=== PATIENT | female | born 1960 | race African-American/Black ===

== ENCOUNTER 2018-02-08 15:39 | Inpatient (IN) | payer MEDICARE, OTHER ==
[2018-02-08] MEDS ORDERED: ACETAMINOPHEN 325 MG TABLET. PO (16:30)
[2018-02-08] MEDS ORDERED: DEXTROSE 50% 25 GM / 50ML DISP.SYRIN. IV (16:30)
[2018-02-08] MEDS ORDERED: CETIRIZINE HCL 10 MG TABLET. PO (16:30)
[2018-02-08] MEDS ORDERED: DICLOFENAC SODIUM 1% TOPICAL GEL 100GM TUBE. TP (16:30)
[2018-02-08] MEDS ORDERED: FAMOTIDINE 20 MG TABLET. PO (16:30)
[2018-02-08 16:59] LABS: POC GLUCOSE 200 mg/dL (70-99)
[2018-02-08] MEDS ORDERED: ALBUTEROL SULFATE 2.5 MG/3 ML NEBU. NEB (17:00)
[2018-02-08] MEDS: ALBUTEROL SULFATE 2.5 MG/3 ML NEBU. NEB ×2 (17:12→19:48)
[2018-02-08] MEDS: methylPREDNISolone SOD SUCC PF 125 MG/2 ML VIAL. IV ×2 (17:15→23:56)
[2018-02-08] MEDS: IV NORMAL SALINE 1000ML BAG 1,000 ML IV (17:15)
[2018-02-08] MEDS: INSULIN ASPART 300 UNITS/3 ML INSULN.PEN SQ ×2 (17:16)
[2018-02-08] MEDS: BUDESONIDE 0.5 MG/2 ML NEBU. NEB (19:47)
[2018-02-08] MEDS: LACTOBACILLUS RHAMNOSUS GG 1 CAPSULE. PO (21:02)
[2018-02-08] MEDS: GABAPENTIN 300 MG CAPSULE. PO (21:02)
[2018-02-08] MEDS: AMOXICILLIN/K CLAV 875/125MG TABLET. PO (21:02)
[2018-02-08] MEDS: MONTELUKAST SODIUM 10 MG TABLET. PO (21:02)
[2018-02-08 21:09] LABS: POC GLUCOSE 367 mg/dL (70-99)
[2018-02-08] MEDS: DOCUSATE SODIUM 100 MG CAPSULE. PO (21:09)
[2018-02-08] MEDS: INSULIN DETEMIR 300 UNITS/3 ML INSULN.PEN. SQ (21:16)
[2018-02-09] MEDS: IV NORMAL SALINE 1000ML BAG 1,000 ML IV ×2 (03:37→14:18)
[2018-02-09] MEDS: methylPREDNISolone SOD SUCC PF 125 MG/2 ML VIAL. IV ×4 (06:05→23:39)
[2018-02-09 07:21] LABS: ALBUMIN 2.8 g/dL (3.4-5.0); ALBUMIN/GLOBULIN RATIO 0.8 (1.0-1.7); ALK PHOS 111 U/L (46-116); ALT (SGPT) 26 U/L (14-59); ANION GAP 9 (6-14); AST (SGOT) 15 U/L (15-37); BLOOD UREA NITROGEN 34 mg/dL (7-20); BUN/CREATININE RATIO 31 (6-20); CALCIUM 8.9 mg/dL (8.5-10.1); CARBON DIOXIDE 23 mmol/L (21-32); CHLORIDE 105 mmol/L (98-107); CREATININE 1.1 mg/dL (0.6-1.0); GFR 62.2; GLUCOSE 346 mg/dL (70-99); POTASSIUM 4.5 mmol/L (3.5-5.1); SODIUM 137 mmol/L (136-145); TOTAL BILIRUBIN 0.2 mg/dL (0.2-1.0); TOTAL PROTEIN 6.5 g/dL (6.4-8.2)
[2018-02-09 07:52] LABS: POC GLUCOSE 299 mg/dL (70-99)
[2018-02-09] MEDS: GABAPENTIN 300 MG CAPSULE. PO ×2 (08:20→20:43)
[2018-02-09] MEDS: amLODIPine BESYLATE 5 MG TABLET PO (08:20)
[2018-02-09] MEDS: AMOXICILLIN/K CLAV 875/125MG TABLET. PO ×2 (08:20→20:44)
[2018-02-09] MEDS: LACTOBACILLUS RHAMNOSUS GG 1 CAPSULE. PO ×2 (08:20→20:43)
[2018-02-09] MEDS: ALLOPURINOL 300 MG TABLET. PO (08:20)
[2018-02-09] MEDS: ASPIRIN CHEWABLE 81 MG TABLET. PO (08:20)
[2018-02-09] MEDS: DOCUSATE SODIUM 100 MG CAPSULE. PO (08:21)
[2018-02-09] MEDS: INSULIN ASPART 300 UNITS/3 ML INSULN.PEN SQ ×6 (08:24→17:23)
[2018-02-09] MEDS: INSULIN DETEMIR 300 UNITS/3 ML INSULN.PEN. SQ ×2 (08:25→20:47)
[2018-02-09 09:12] LABS: ADD MAN DIFF? NO
[2018-02-09 09:18] LABS: BASO % 0 % (0-3); EOS % 0 % (0-3); HEMATOCRIT 37.8 % (36.0-47.0); LYMPH # 1.8 x10^3/uL (1.0-4.8); LYMPH % 15 % (24-48); MEAN CORPUSCULAR HEMOGLOBIN 30 pg (25-35); MEAN CORPUSCULAR HGB CONC 32 g/dL (31-37); MEAN CORPUSCULAR VOLUME 93 fL (79-100); MONO # 0.4 x10^3/uL (0.0-1.1); MONO % 4 % (0-9); NEUT # 10.1 x10^3uL (1.8-7.7); NEUT % 82 % (31-73); PLATELET COUNT 248 x10^3/uL (140-400); RED BLOOD COUNT 4.05 x10^6/uL (3.50-5.40); RED CELL DISTRIBUTION WIDTH 15.1 % (11.5-14.5); WHITE BLOOD COUNT 12.4 x10^3/uL (4.0-11.0)
[2018-02-09] MEDS: BUDESONIDE 0.5 MG/2 ML NEBU. NEB ×2 (09:42→19:18)
[2018-02-09] MEDS: ALBUTEROL SULFATE 2.5 MG/3 ML NEBU. NEB ×4 (09:42→19:19)
[2018-02-09 09:43] LABS: C-REACTIVE PROTEIN 2.4 mg/L (0-3.3)
[2018-02-09 11:01] LABS: SEDIMENTATION RATE 18 (0-25)
[2018-02-09 12:16] LABS: POC GLUCOSE 318 mg/dL (70-99)
[2018-02-09 15:22] LABS: MRSA BY PCR Negative (Negative)
[2018-02-09 16:54] LABS: POC GLUCOSE 260 mg/dL (70-99)
[2018-02-09 20:42] LABS: POC GLUCOSE 373 mg/dL (70-99)
[2018-02-09] MEDS: MONTELUKAST SODIUM 10 MG TABLET. PO (20:43)
[2018-02-09] MEDS: POLYETHYLENE GLYCOL 3350 17 GM PACKET. PO (20:48)
[2018-02-10] MEDS: IV NORMAL SALINE 1000ML BAG 1,000 ML IV ×2 (03:02→09:00)
[2018-02-10 05:35] LABS: HEMATOCRIT 32.6 % (36.0-47.0); HEMOGLOBIN 10.7 g/dL (12.0-15.5); MEAN CORPUSCULAR HEMOGLOBIN 31 pg (25-35); MEAN CORPUSCULAR HGB CONC 33 g/dL (31-37); MEAN CORPUSCULAR VOLUME 94 fL (79-100); PLATELET COUNT 226 x10^3/uL (140-400); RED BLOOD COUNT 3.49 x10^6/uL (3.50-5.40); RED CELL DISTRIBUTION WIDTH 15.4 % (11.5-14.5); WHITE BLOOD COUNT 12.1 x10^3/uL (4.0-11.0)
[2018-02-10] MEDS: methylPREDNISolone SOD SUCC PF 125 MG/2 ML VIAL. IV ×3 (05:45→20:51)
[2018-02-10 05:48] LABS: ANION GAP 11 (6-14); BLOOD UREA NITROGEN 35 mg/dL (7-20); CALCIUM 8.5 mg/dL (8.5-10.1); CARBON DIOXIDE 24 mmol/L (21-32); CHLORIDE 105 mmol/L (98-107); CREATININE 1.2 mg/dL (0.6-1.0); GFR 56.2; GLUCOSE 391 mg/dL (70-99); MAGNESIUM 2.4 mg/dL (1.8-2.4); POTASSIUM 4.4 mmol/L (3.5-5.1); SODIUM 140 mmol/L (136-145)
[2018-02-10 07:28] LABS: POC GLUCOSE 345 mg/dL (70-99)
[2018-02-10] MEDS: BUDESONIDE 0.5 MG/2 ML NEBU. NEB ×2 (07:28→19:45)
[2018-02-10] MEDS: ALBUTEROL SULFATE 2.5 MG/3 ML NEBU. NEB ×4 (07:28→19:45)
[2018-02-10] MEDS: GABAPENTIN 300 MG CAPSULE. PO ×2 (08:19→20:51)
[2018-02-10] MEDS: ALLOPURINOL 300 MG TABLET. PO (08:19)
[2018-02-10] MEDS: ASPIRIN CHEWABLE 81 MG TABLET. PO (08:19)
[2018-02-10] MEDS: AMOXICILLIN/K CLAV 875/125MG TABLET. PO ×2 (08:19→20:51)
[2018-02-10] MEDS: amLODIPine BESYLATE 5 MG TABLET PO (08:21)
[2018-02-10] MEDS: POLYETHYLENE GLYCOL 3350 17 GM PACKET. PO (08:21)
[2018-02-10] MEDS: DOCUSATE SODIUM 100 MG CAPSULE. PO (08:23)
[2018-02-10] MEDS: LACTOBACILLUS RHAMNOSUS GG 1 CAPSULE. PO ×2 (08:23→20:51)
[2018-02-10] MEDS: INSULIN ASPART 300 UNITS/3 ML INSULN.PEN SQ ×6 (08:34→17:18)
[2018-02-10] MEDS: INSULIN DETEMIR 300 UNITS/3 ML INSULN.PEN. SQ ×2 (08:36→20:57)
[2018-02-10 11:12] LABS: POC GLUCOSE 341 mg/dL (70-99)
[2018-02-10] MEDS: LOSARTAN POTASSIUM 25 MG TABLET. PO (11:36)
[2018-02-10 17:24] LABS: POC GLUCOSE 260 mg/dL (70-99)
[2018-02-10] MEDS: MONTELUKAST SODIUM 10 MG TABLET. PO (20:51)
[2018-02-10 21:00] LABS: POC GLUCOSE 262 mg/dL (70-99)
[2018-02-11 04:50] LABS: ANION GAP 7 (6-14); BLOOD UREA NITROGEN 37 mg/dL (7-20); CARBON DIOXIDE 25 mmol/L (21-32); CHLORIDE 107 mmol/L (98-107); CREATININE 1.3 mg/dL (0.6-1.0); GFR 51.3; GLUCOSE 383 mg/dL (70-99); POTASSIUM 4.4 mmol/L (3.5-5.1); SODIUM 139 mmol/L (136-145)
[2018-02-11] MEDS: methylPREDNISolone SOD SUCC PF 125 MG/2 ML VIAL. IV (05:49)
[2018-02-11] MEDS: ALBUTEROL SULFATE 2.5 MG/3 ML NEBU. NEB ×4 (07:23→19:43)
[2018-02-11] MEDS: BUDESONIDE 0.5 MG/2 ML NEBU. NEB ×2 (07:23→19:43)
[2018-02-11] MEDS ORDERED: metFORMIN XR 500 MG TAB.ER.24H PO (08:00)
[2018-02-11] MEDS: AMOXICILLIN/K CLAV 875/125MG TABLET. PO ×2 (08:21→21:29)
[2018-02-11] MEDS: POLYETHYLENE GLYCOL 3350 17 GM PACKET. PO (08:21)
[2018-02-11] MEDS: ALLOPURINOL 300 MG TABLET. PO (08:21)
[2018-02-11] MEDS: DOCUSATE SODIUM 100 MG CAPSULE. PO (08:22)
[2018-02-11] MEDS: metFORMIN XR 500 MG TAB.ER.24H PO ×2 (08:22→21:29)
[2018-02-11] MEDS: GABAPENTIN 300 MG CAPSULE. PO ×2 (08:22→21:29)
[2018-02-11] MEDS: ASPIRIN CHEWABLE 81 MG TABLET. PO (08:22)
[2018-02-11] MEDS: LOSARTAN POTASSIUM 25 MG TABLET. PO (08:23)
[2018-02-11 08:25] LABS: POC GLUCOSE 320 mg/dL (70-99)
[2018-02-11] MEDS: INSULIN ASPART 300 UNITS/3 ML INSULN.PEN SQ ×6 (08:34→17:13)
[2018-02-11] MEDS: LACTOBACILLUS RHAMNOSUS GG 1 CAPSULE. PO ×2 (08:35→21:29)
[2018-02-11] MEDS: amLODIPine BESYLATE 10 MG TABLET PO (08:36)
[2018-02-11] MEDS: INSULIN DETEMIR 300 UNITS/3 ML INSULN.PEN. SQ ×2 (10:04→21:36)
[2018-02-11 11:55] LABS: POC GLUCOSE 362 mg/dL (70-99)
[2018-02-11 16:57] LABS: POC GLUCOSE 313 mg/dL (70-99)
[2018-02-11] MEDS: methylPREDNISolone SOD SUCC PF 40 MG/ML VIAL. IV (17:15)
[2018-02-11 20:45] LABS: POC GLUCOSE 273 mg/dL (70-99)
[2018-02-11] MEDS: MONTELUKAST SODIUM 10 MG TABLET. PO (21:29)
[2018-02-12] MEDS: methylPREDNISolone SOD SUCC PF 40 MG/ML VIAL. IV (06:05)
[2018-02-12] MEDS: BUDESONIDE 0.5 MG/2 ML NEBU. NEB (07:12)
[2018-02-12] MEDS: ALBUTEROL SULFATE 2.5 MG/3 ML NEBU. NEB ×2 (07:12→11:26)
[2018-02-12 08:03] LABS: POC GLUCOSE 197 mg/dL (70-99)
[2018-02-12] MEDS: INSULIN ASPART 300 UNITS/3 ML INSULN.PEN SQ ×4 (08:16→12:10)
[2018-02-12] MEDS: POLYETHYLENE GLYCOL 3350 17 GM PACKET. PO (08:20)
[2018-02-12] MEDS: AMOXICILLIN/K CLAV 875/125MG TABLET. PO (08:29)
[2018-02-12] MEDS: LACTOBACILLUS RHAMNOSUS GG 1 CAPSULE. PO (08:29)
[2018-02-12] MEDS: GABAPENTIN 300 MG CAPSULE. PO (08:30)
[2018-02-12] MEDS: amLODIPine BESYLATE 10 MG TABLET PO (08:30)
[2018-02-12] MEDS: ASPIRIN CHEWABLE 81 MG TABLET. PO (08:31)
[2018-02-12] MEDS: ALLOPURINOL 300 MG TABLET. PO (08:31)
[2018-02-12] MEDS: LOSARTAN POTASSIUM 25 MG TABLET. PO (08:31)
[2018-02-12] MEDS: metFORMIN XR 500 MG TAB.ER.24H PO (08:31)
[2018-02-12] MEDS: INSULIN DETEMIR 300 UNITS/3 ML INSULN.PEN. SQ (08:35)
[2018-02-12 09:17] LABS: ANION GAP 7 (6-14); BLOOD UREA NITROGEN 32 mg/dL (7-20); CALCIUM 8.9 mg/dL (8.5-10.1); CARBON DIOXIDE 29 mmol/L (21-32); CHLORIDE 106 mmol/L (98-107); CREATININE 1.1 mg/dL (0.6-1.0); GFR 62.2; GLUCOSE 208 mg/dL (70-99); POTASSIUM 4.3 mmol/L (3.5-5.1); SODIUM 142 mmol/L (136-145)
[2018-02-12 12:04] LABS: POC GLUCOSE 226 mg/dL (70-99)
== END 2018-02-12 15:15 | disposition home or self-care (01) | DRG 682 ==
LOC: 5 NORTH 02-09 16:26 → 1 WEST ICU 15:39
PROVIDERS: Internal Medicine
DX: N17.9 Acute kidney failure, unspecified (principal); E43 Unspecified severe protein-calorie malnutrition; E11.22 Type 2 diabetes mellitus with diabetic chronic kidney disease; E11.42 Type 2 diabetes mellitus with diabetic polyneuropathy; J45.31 Mild persistent asthma with (acute) exacerbation; E86.0 Dehydration; K22.5 Diverticulum of esophagus, acquired; J45.901 Unspecified asthma with (acute) exacerbation; J20.9 Acute bronchitis, unspecified; Z68.34 Body mass index [BMI] 34.0-34.9, adult; Z88.8 Allergy status to other drugs, medicaments and biological substances; E11.65 Type 2 diabetes mellitus with hyperglycemia; E78.5 Hyperlipidemia, unspecified; M19.90 Unspecified osteoarthritis, unspecified site; M10.9 Gout, unspecified; N18.2 Chronic kidney disease, stage 2 (mild); I12.9 Hypertensive chronic kidney disease with stage 1 through stage 4 chronic kidney disease, or unspecified chronic kidney disease; I25.10 Atherosclerotic heart disease of native coronary artery without angina pectoris; I25.2 Old myocardial infarction; Z82.3 Family history of stroke; Z82.49 Family history of ischemic heart disease and other diseases of the circulatory system; Z83.3 Family history of diabetes mellitus; Z98.1 Arthrodesis status; Z79.4 Long term (current) use of insulin
CPT/HCPCS: 36415; 80048; 80053; 82962; 83735; 85025; 85027; 85651; 86140; 87641; 94618; 94640; 94760; J1815; J2920; J2930; J7030; J7613; J7626